=== PATIENT | male | born 1990 | race Caucasian/White ===

== ENCOUNTER 2016-11-08 20:30 | Emergency (ER) | payer OTHER ==
[~2016-11-08] VITALS: Ht 180.3 cm; Wt 117.4 kg
[2016-11-08 20:32] VITALS: BP 131/80
[2016-11-08] MEDS ORDERED: BACTRIM,SEPT1 TABLET PO (22:57)
[2016-11-08] MEDS ORDERED: NORCO 5/3251 TABLET PO (22:57)
== END 2016-11-08 23:11 | disposition home or self-care (01) ==
LOC: EME 20:30
PROC: 0H98XZZ Drainage of Buttock Skin, External Approach (ICD-10-PCS; principal; 2016-11-08)
DX: L05.91 Pilonidal cyst without abscess (principal); F17.200 Nicotine dependence, unspecified, uncomplicated
CPT/HCPCS: 87070; 87075; 87076; 87185; 87205; 99281; 99284